=== PATIENT | male | born 1965 | race Two or more races ===

== ENCOUNTER 2024-01-15 10:00 | Emergency (ER) | payer OTHER, SELFPAY ==
--- NOTE | ~2024-01-15 | XR_ITS ---
EXAMINATION: XR CERVICAL SPINE CLINICAL INFORMATION: pain down right arm COMPARISON: None available. TECHNIQUE: 3 views of the cervical spine were obtained. FINDINGS: Mild reversal of cervical lordosis. The cervical vertebral bodies demonstrate normal height. Overall sagittal alignment is maintained. Mild intervertebral disc space narrowing and small endplate degenerative osteophytes at C4-C5 through C6-C7 The posterior elements appear intact. The atlantodental interval is maintained. Normal alignment of lateral masses of C1 over C2. The prevertebral soft tissue thickness is within normal limits. XR/XR cervical spine 3V IMPRESSION: No radiographic evidence of acute abnormality involving the cervical spine. Mild multilevel degenerative changes. Electronically signed by: Alan Reyna MD 01/15/2024 12:20 PM [facility]
--- NOTE | ~2024-01-15 | XR_ITS ---
EXAMINATION: XR SHOULDER, RIGHT CLINICAL INFORMATION: right shoulder pain COMPARISON: None available. TECHNIQUE: AP external rotation, Grashey, scapular Y, and axillary views of the right shoulder. FINDINGS: No acute fracture or dislocation. Glenohumeral and acromioclavicular alignment is anatomic with preserved joint spaces. No acute soft tissue abnormality. No abnormal soft tissue calcifications. XR/XR shoulder RT min 2V IMPRESSION: No acute fracture or dislocation. Electronically signed by: Alan Reyna MD 01/15/2024 12:25 PM [facility]
[2024-01-15 10:02] VITALS: BP 127/89; PULSE 77; RESP 18; TEMP 36.6; O2SAT 98; BMI 28.1
--- NOTE | 2024-01-15 11:12 | ED_ITS ---
HPI - General Adult General Chief complaint: General Medical Stated complaint: r arm pain Time Seen by Provider: 01/15/24 10:45 Source: patient Mode of arrival: ambulatory Limitations: no limitations History of Present Illness ED Provider: HORTENCIA ADKINS PA-C HPI narrative: 59 year old male with no significant pmhx presents to the ED today for evaluation of right neck/ upper back pain x1 month. Admits the pain has been constant since onset and just recently began radiating down his right upper extremity. 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 Denies heavy lifting. He has not trial any OTC pain medications at home. Denies any blunt injury or trauma. Denies numbness/tingling/weakness of the extremity. Denies hx of spinal or shoulder surgeries. Related Data Previous Rx's ?Medication ?Instructions ?Recorded cyclobenzaprine 5 mg tablet 5 mg PO Q8H #7 tabs 01/15/24 lidocaine 5 % topical patch 1 patch topical DAILY #15 ea 01/15/24 (Lidoderm) Allergies Allergy/AdvReac Type Severity Reaction Status Date / Time No Known Allergies Allergy Verified 01/15/24 10:03 Review of Systems Review of Systems: Yes all other systems are reviewed and are negative PMFSH Past Medical History Attestation statement: The following information was validated with the patient. Source: old records reviewed and nursing notes reviewed Social History Social History Advance Directives: No Advance Directives Information Provided: Yes Do you have a plan to hurt others: No Plan Physical Exam ED Vital Signs: Vital Signs - 24 hr 01/15/24 10:02 Temperature 98 F Pulse Rate 77 Respiratory Rate 18 Blood Pressure 127/89 Pulse Oximetry 98 Oxygen Delivery Method Room Air BMI result Body Mass Index 28.1 vital signs stable General: Well appearing, in no acute distress. Skin: Warm, dry, intact. No rashes or lesions. Head: Normocephalic, atraumatic. EENT: Hearing is intact b/l. Conjunctiva clear. PERRLA. EOM intact. Moist mucous membranes.? Neck: no midline spinous tendereness, ttp over right cervical paraspinal mm extending into right trapezius and right rotator cuff region. no palpable deformity or crepitus. Cardiac: Chest wall symmetric. RRR Lungs: Normal respiratory effort without accessory muscle use. CTA bilaterally Back: No midline spinous or paraspinal tenderness. No step off deformity. Ext: Full range of motion intact to right shoulder with mild pain on abduction against resistance. No palpable deformity or crepitus over the right shoulder joint. 2+ radial/ulnar pulse intact. Sensation intact to light touch. Neuro: AOx3. Normal speech. Ambulating with steady gait. Psych: Appropriate mood and affect. Responds appropriately to questions. Course Course Course Narrative: 1247 -- x-rays right shoulder without fracture. X-ray cervical spine with degenerative changes, no fracture. Concern for cervical radiculopathy vs muscular pain. On re-evaluation, patient reports improvement in pain after receiving Toradol, Flexeril and lidocaine patch. He does have a ride home as he did receive Flexeril today. He will not be driving. Will send pain control to pharmacy. Advised to follow up with PCP as needed. Patient has remained stable throughout ED visit today. Discussed worrisome signs and symptoms and when to return to the ED. All questions answered at this time. Patient is agreeable with disposition and stable for discharge. Medications Administered Discontinued Medications Generic Name Dose Route Start Last Admin Trade Name Freq PRN Reason Stop Dose Admin Cyclobenzaprine HCl 10 mg 01/15/24 11:16 01/15/24 11:41 Cyclobenzaprine Hcl 10 Mg Tablet PO 01/15/24 11:17 10 mg ONCE ONE Administration Ketorolac Tromethamine 30 mg 01/15/24 11:17 01/15/24 11:42 Ketorolac Tromethamine 30 Mg/Ml Vial IM 01/15/24 11:18 30 mg ONCE ONE Administration Lidocaine 1 patch 01/15/24 11:17 01/15/24 11:41 Lidocaine 4 % Patch Adh..Patch TRANSDERMA 01/15/24 11:18 1 patch ONCE ONE Administration Protocol Medical Decision Making Medical Decision Making MDM Narrative: 59 year old male with no significant pmhx presents to the ED today for evaluation of right neck/ upper back pain x1 month. Vital signs stable. Afebrile. He is nontoxic-appearing and in no acute distress. Lying comfortably on the exam bed. On exam, there is no midline spinous tendereness, ttp over right cervical paraspinal mm extending into right trapezius and right rotator cuff region. no palpable deformity or crepitus. Full range of motion intact to right shoulder with mild pain on abduction against resistance. No palpable deformity or crepitus over the right shoulder joint. 2+ radial/ulnar pulse intact. Sensation intact to light touch. Differential diagnosis includes contusion, MSK sprain/strain, cervical radiculopathy, arthritis, tendonitis, bursitis. Lower suspicion for fracture, dislocation. Unlikely rotator cuff injury, neurovascular compromise, threat to limb, compartment syndrome, DVT, rotator cuff tear. Plan for xrays, pain control, and re-evaluation. Differential Diagnosis Differential Diagnoses: The differential diagnosis associated with the presentation includes as above. Admission/Observation Not indicated. Independent Interpretation I performed an independent interpretation of an: Plain X-Ray Interpretation: XR cervical spine without fracture XR right shoulder without fracture Radiology Impression Discussion of test interpretation with radiology: I have reviewed the radiologist's reading. Radiologist Impression: EXAMINATION: XR CERVICAL SPINE CLINICAL INFORMATION: pain down right arm COMPARISON: None available. TECHNIQUE: 3 views of the cervical spine were obtained. FINDINGS: Mild reversal of cervical lordosis. The cervical vertebral bodies demonstrate normal height. Overall sagittal alignment is maintained. Mild intervertebral disc space narrowing and small endplate degenerative osteophytes at C4-C5 through C6-C7 The posterior elements appear intact. The atlantodental interval is maintained. Normal alignment of lateral masses of C1 over C2. The prevertebral soft tissue thickness is within normal limits. XR/XR cervical spine 3V IMPRESSION: No radiographic evidence of acute abnormality involving the cervical spine. Mild multilevel degenerative changes. Electronically signed by: Alan Reyna MD 01/15/2024 12:20 PM EST RP EXAMINATION: XR SHOULDER, RIGHT CLINICAL INFORMATION: right shoulder pain COMPARISON: None available. TECHNIQUE: AP external rotation, Grashey, scapular Y, and axillary views of the right shoulder. FINDINGS: No acute fracture or dislocation. Glenohumeral and acromioclavicular alignment is anatomic with preserved joint spaces. No acute soft tissue abnormality. No abnormal soft tissue calcifications. XR/XR shoulder RT min 2V IMPRESSION: No acute fracture or dislocation. Electronically signed by: Alan Reyna MD 01/15/2024 12:25 PM [employer] External Record Review External record reviewed: Inpatient record Prescription Management I considered prescription management with: Pain Medication (Tylenol, ibuprofen) and Other (Flexeril, lidocaine patch) Social Determinants Patient?s care significantly limited by Social Determinants of Health including: Other Social Determinant of Health Critical Care Time Critical Care Time Critical Care Time: No Discharge Plan Discharge Clinical Impression: Cervical radiculopathy Patient Disposition: Home, Self-Care Instructions: Cervical Radiculopathy (ED) Additional Instructions: You were evaluated in the emergency department for right neck/upper back/arm pain. The x-ray of your neck and shoulder do not reveal any fracture. There are degenerative changes within the neck itself. Your pain is likely musculoskeletal. I advised taking Tylenol and Motrin at home for pain control. I have also sent Flexeril, a muscle relaxer, to your pharmacy for you to take as needed for muscle pain. Do not take this while drinking, driving or operating heavy machinery as this may cause you to be drowsy. Lidocaine patches have been sent to your pharmacy to apply to the area as needed for pain control. Follow up with your primary care provider as needed Return with new or worsening symptoms. In the case of an emergency call 911. Prescriptions: New cyclobenzaprine 5 mg tablet 5 mg PO Q8H Qty: 7 0RF lidocaine [Lidoderm] 5 % adhesive patch,medicated 1 patch topical DAILY Qty: 15 0RF Rx Instructions: leave on most painful area for up to 12 hrs Referrals: Bernard Meng PA [Primary Care Provider] - Stand Alone Forms: Work/School Release Print Language: Polish
[2024-01-15] MEDS: Lidocaine 4 % Patch ADH..PATCH 1 PATCH TRANSDERMA (11:41)
[2024-01-15] MEDS: Cyclobenzaprine HCl 10 MG TABLET PO (11:41)
[2024-01-15] MEDS: Ketorolac Tromethamine 30 MG/ML VIAL IM (11:42)
[2024-01-15 13:02] VITALS: BP 127/89; PULSE 77; RESP 18; TEMP 36.6; O2SAT 98
== END 2024-01-15 13:03 | disposition home or self-care (01) ==
PROVIDERS: Emergency Provider Emergency Medicine Emergency Medical Services; PCP Physician Assistant Medical
DX: M54.12 Radiculopathy, cervical region (principal); M54.2 Cervicalgia
CPT/HCPCS: 72040; 73030; 96372; 99283; 99284; J1885

== ENCOUNTER 2024-04-11 14:43 | Emergency (ER) | payer OTHER, SELFPAY ==
--- NOTE | ~2024-04-11 | XR_ITS ---
EXAMINATION: XR CHEST CLINICAL INFORMATION: CP COMPARISON: None available. TECHNIQUE: 2 views of the chest were obtained. FINDINGS: No significant abnormality is noted involving the heart, lungs, mediastinum, bony thorax or soft tissues. XR/XR chest 2V IMPRESSION: Unremarkable chest examination. Electronically signed by: Rafael Galan MD 04/11/2024 04:31 PM [facility]
[2024-04-11 15:37] VITALS: BP 123/78; PULSE 92; RESP 18; TEMP 37.6; O2SAT 99; BMI 28.4
--- NOTE | 2024-04-11 15:37 | ED_ITS ---
HPI - Nausea/Vomiting/Diarrhea General Chief complaint: Abdominal Pain Stated complaint: Vomiting, dizziness Time Seen by Provider: 04/12/24 03:46 Source: patient Mode of arrival: ambulatory Limitations: no limitations History of Present Illness ED Provider: Dr. Tami Ramirez HPI Narrative: Patient comes to the emergency room complaining of nausea vomiting diarrhea and mild abdominal discomfort. Patient states that he ate at a [employer] almost 36 hours ago. Patient has had multiple episodes of vomiting and diarrhea. Patient states that people who worked with him and when for dinner at [employer], they all got sick. Patient denies fever chills, denies URI or UTI symptoms. Related Data Previous Rx's ?Medication ?Instructions ?Recorded cyclobenzaprine 5 mg tablet 5 mg PO Q8H #7 tabs 01/15/24 lidocaine 5 % topical patch 1 patch topical DAILY #15 ea 01/15/24 (Lidoderm) loperamide 2 mg tablet 2 mg PO Q4H PRN loose stool #14 04/12/24 tabs ondansetron 4 mg disintegrating 4 mg PO Q6H PRN nausea and 04/12/24 tablet vomiting #10 tabs Allergies Allergy/AdvReac Type Severity Reaction Status Date / Time No Known Allergies Allergy Verified 04/11/24 15:39 Review of Systems 2 Review of Systems: Constitutional : No Weight loss, No Fever, No Chills, No Night Sweats, No Fatigue, No Malaise ENT/Mouth : No Hearing loss, No Ear Pain, No Nasal Congestion, No Sinus Pain, No Hoarseness, No sore throat, No Rhinorrhea, No Swallowing Difficulty Eyes: No Eye Pain, No Swelling, No Redness, No Foreign Body, No Discharge, No Vision Changes Cardiovascular : No Chest Pain, No SOB, No Dyspnea on Exertion, No Orthopnea, No Edema, No Palpitations Respiratory : No Cough, No Sputum, No Wheezing, No Smoke Exposure, No Dyspnea Gastrointestinal : Complaining of nausea vomiting diarrhea, No Constipation, of abdominal cramping without significant abdominal Pain, No Hematochezia, No Melena Genitourinary : no irregular bleeding, No Dysuria, No Urinary Frequency, No Hematuria, No Urinary Incontinence, No Urgency, No Flank Pain, No Urinary Flow Changes, No Hesitancy Musculoskeletal : No joint pain, No Myalgias, No Joint Swelling Skin : No Skin Lesions, No rash Neuro : No Weakness, No Numbness, No Paresthesias, No Loss of Consciousness, No Dizziness, No Headache Psych : No Anxiety/Panic, No Depression, No SI/HI/AH/VH, No Social Issues, Heme/Lymph: No Bruising, No Bleeding,No Lymphadenopathy Endocrine : No Polyuria, No Polydipsia, No Temperature Intolerance PMFSH Social History Social History Advance Directives: No Advance Directives Information Provided: Yes Physical Exam 2 Vital Signs: Vital Signs: Last Vital Signs Temp 98.1 F 04/12/24 01:56 Pulse 83 04/12/24 01:56 Resp 16 04/12/24 01:56 BP 113/77 04/12/24 01:56 Pulse Ox 97 04/12/24 01:56 O2 Del Method Room Air 04/12/24 01:56 BMI result Body Mass Index 28.4 Const: Other: Appearance: Alert. Oriented X3. No acute distress. Well-appearing Eyes: Pupils equal, round and reactive to light. ENT: Pharynx normal. Neck: Normal inspection. Neck supple. No lymph nodes noted. No crepitus CVS: Normal heart rate and rhythm. Pulses normal. Normal S1 and S2 Respiratory: No respiratory distress. Breath sounds normal. No Wheezing. No rales Abdomen: Soft and nontender. No rigidity. No distention. Skin: Skin warm and dry. Normal skin color. Normal skin turgor. Extremities: No lower extremity edema. No Lacerations. No Rash Neuro: Oriented X 3. No motor deficit. No sensory deficit. Moving all extremities. No slurred speech. CN 2 through 12 grossly intact Psych: calm, cooperative, normal affect Course Course Course Narrative: This is an RME: Additional HPI, ROS, PE not included below will be deferred to primary provider. RME assessment and note performed by: Lizbeth Rowley PA-C This is a 59 year old male, w hx of IRAIS and HTN, who presents to the ER with a complaint of nausea, vomiting, diarrhea since last night. Had Sosa's yesterday and has had symptoms since. Threw up his blood pressure meds morning. Plan: Labs, UA, EKG, Chest x-ray, Zofran 4 mg ODT Medications Administered Discontinued Medications Generic Name Dose Route Start Last Admin Trade Name Igorq PRN Reason Stop Dose Admin Ondansetron HCl 4 mg 04/11/24 15:39 04/11/24 15:41 Ondansetron Odt 4 Mg Tab.Leigh Ann USINGU 04/11/24 15:40 4 mg ONCE ONE Administration Medical Decision Making Medical Decision Making [facility] Narrative: Physical exam is reassuring, no abdominal tenderness. Patient's labs, hematology and chemistry within normal limits, normal troponin, serology negative for COVID RSV and influenza, urinalysis negative for UTI Given patient's history, likely has gastroenteritis Patient was provided with Zofran and loperamide. Lab Data [facility] Lab Attestation statement: I reviewed the patient's lab results. 04/11/24 15:51 04/11/24 15:51 Labs: Lab Results 04/11/24 04/11/24 04/11/24 Range/Units 15:51 21:54 22:10 WBC 9.8 (4.8-10.8) X10*3/uL RBC 4.67 (4.60-5.80) X10*6/uL Hgb 14.3 (14.0-18.0) g/dl Hct 40.3 L (42.0-52.0) % MCV 86.3 (80.0-98.0) fL MCH 30.6 (27.0-33.0) pg MCHC 35.5 (31.0-36.0) g/dl RDW 13.4 (11.0-16.0) % Plt Count 261 (160-400) X10*3/uL MPV 9.8 (9.4-12.4) fL Immature Gran % (Auto) 0.3 (0.0-0.4) % Neut % (Auto) 89.0 H (45-73) % Lymph % (Auto) 6.0 L (20-40) % [place] % (Auto) 4.1 (2-11) % Eos % (Auto) 0.4 (0-4) % Baso % (Auto) 0.2 (0-2) % Lymph # (Auto) 0.6 L (1.2-4.9) X10*3/uL [place] # (Auto) 0.4 (0.1-1.2) X10*3/uL Eos # (Auto) 0.0 (0.0-0.4) X10*3/uL Baso # (Auto) 0.0 (0.0-0.2) X10*3/uL Abs Immat Gran (auto) 0.03 (0.00-0.03) X10*3/uL Absolute Neuts (auto) 8.7 H (2.0-8.3) x10*3/uL Absolute Nucleated RBC 0.000 (0.0-0.012) X10*3/uL Nucleated RBC % (auto) 0.0 (0.0-0.2) /100WBC Sodium 140 (135-145) mmol/L Potassium 3.9 (3.3-5.1) mmol/L Chloride 106 (96-108) mmol/L Carbon Dioxide 25 (22-29) mmol/L Anion Gap 13 (12-20) BUN 18 H (9-16) mg/dL Creatinine 1.12 (0.5-1.4) mg/dL Estim Creat Clear Calc 77.1 Estimated GFR > 60 Random Glucose 102 (60-115) mg/dL Calcium 9.2 (8.4-10.2) mg/dL Magnesium 1.8 (1.6-2.6) mg/dL Total Bilirubin 1.0 (0.0-1.0) mg/dL Direct Bilirubin 0.3 (0.0-0.5) mg/dL AST 32 (5-37) U/L ALT 28 (0-40) U/L Alkaline Phosphatase 122 H (39-117) U/L Troponin I High Sens < 2.7 < 2.7 (<3.5-35.0) ng/L Total Protein 8.0 (6.5-8.0) g/dL Albumin 4.2 (3.5-5.0) g/dL Lipase 13 (8-78) U/L Urine Color Dark Yellow Urine Appearance Clear Urine pH 5.5 (5.0-9.0) Ur Specific [place] >= 1.030 H (1.005-1.025) Urine Protein 30 (1+) H (Neg-Trace) mg/dL Urine Glucose (UA) Negative (Negative) mg/dL Urine Ketones Trace (Negative) mg/dL Urine Blood Negative (Negative) Urine Nitrite Negative (Negative) Ur Leukocyte Esterase Negative (Negative) Urine RBC 0-2 (0-2) /HPF Urine WBC 0-5 (0-5) /HPF Ur Squamous Epith Cells 0-2 (0-2) /HPF Urine Bacteria None Seen (None Seen) Hyaline Casts 0-2 (0-2) /LPF Influenza Type A (PCR) NEGATIVE (Negative) Influenza Type B (PCR) NEGATIVE (Negative) RSV RNA Qual (PCR) NEGATIVE (Negative) SARS-CoV-2 RNA (RT-PCR) NEGATIVE (Negative) Discharge Plan Discharge Clinical Impression: Gastroenteritis Patient Disposition: Home, Self-Care Instructions: Acute Nausea and Vomiting (ED), Acute Diarrhea (ED) Additional Instructions: Please follow-up with your primary care physician tomorrow. If you have any worsening or new symptoms, please return to the emergency room or call 911 Prescriptions: New ondansetron 4 mg tablet,disintegrating 4 mg PO Q6H PRN (Reason: nausea and vomiting) Qty: 10 0RF loperamide 2 mg tablet 2 mg PO Q4H PRN (Reason: loose stool) Qty: 14 0RF Rx Instructions: administer after each loose stool until symptoms controlled; do not exceed 8 mg per 24 hrs No Action cyclobenzaprine 5 mg tablet 5 mg PO Q8H Qty: 7 0RF lidocaine [Lidoderm] 5 % adhesive patch,medicated 1 patch topical DAILY Qty: 15 0RF Rx Instructions: leave on most painful area for up to 12 hrs Stand Alone Forms: Work/School Release Print Language: [place]an
--- NOTE | 2024-04-11 15:38 | ECG_ITS ---
Test Reason : abdominal pain Blood Pressure : */* mmHG Vent. Rate : 82 BPM Atrial Rate : 82 BPM P-R Int : 148 ms QRS Dur : 78 ms QT Int : 364 ms P-R-T Axes : 7 7 15 degrees QTcB Int : 425 ms Normal sinus rhythm Normal ECG No previous ECGs available Referred By: Lizbeth Rowley Electronically Signed By: DIVYA JETER MD
[2024-04-11] MEDS: Ondansetron ODT 4 MG TAB.RAPDIS TRANSLINGU (15:41)
[2024-04-11 15:55] LABS: MANUAL DIFF FLAG NO
[2024-04-11 16:02] LABS: Basophils Percent Auto 0.2 % (0-2); Eosinophils Percent Auto 0.4 % (0-4); Hematocrit 40.3 % (42.0-52.0); Hemoglobin 14.3 g/dl (14.0-18.0); Imm Gran Abs Auto 0.03 X10*3/uL (0.00-0.03); Imm Gran Pct Auto 0.3 % (0.0-0.4); Lymphocytes Absolute Auto 0.6 X10*3/uL (1.2-4.9); Mean Corpuscular HGB Conc 35.5 g/dl (31.0-36.0); Mean Corpuscular Hemoglobin 30.6 pg (27.0-33.0); Mean Corpuscular Volume 86.3 fL (80.0-98.0); Mean Platelet Volume 9.8 fL (9.4-12.4); Monocytes Absolute Auto 0.4 X10*3/uL (0.1-1.2); Monocytes Percent Auto 4.1 % (2-11); Neutrophils Absolute Auto 8.7 x10*3/uL (2.0-8.3); Platelet Count 261 X10*3/uL (160-400); Red Blood Count 4.67 X10*6/uL (4.60-5.80); Red Cell Distribution Width 13.4 % (11.0-16.0); White Blood Count 9.8 X10*3/uL (4.8-10.8)
[2024-04-11 16:22] LABS: Troponin-I High Sensitivity < 2.7 ng/L (<3.5-35.0)
[2024-04-11 16:35] LABS: Influenza A PCR NEGATIVE (Negative); Influenza B PCR NEGATIVE (Negative); Resp Syncy Virus RNA Qual PCR NEGATIVE (Negative); SARS COV2 PCR INHOUSE NEGATIVE (Negative)
[2024-04-11 16:45] LABS: Alanine Aminotransferase 28 U/L (0-40); Albumin Level 4.2 g/dL (3.5-5.0); Alkaline Phosphatase 122 U/L (39-117); Anion Gap 13 (12-20); Aspartate Amino Transferase 32 U/L (5-37); Bilirubin Direct 0.3 mg/dL (0.0-0.5); Blood Urea Nitrogen 18 mg/dL (9-16); Calcium 9.2 mg/dL (8.4-10.2); Carbon Dioxide 25 mmol/L (22-29); Chloride 106 mmol/L (96-108); Creatinine Clr Calc Pharmacy 77.1; Estimated Glomerular Filt Rate > 60; Glucose Random 102 mg/dL (60-115); Lipase 13 U/L (8-78); Magnesium 1.8 mg/dL (1.6-2.6); Potassium 3.9 mmol/L (3.3-5.1); Sodium 140 mmol/L (135-145)
[2024-04-11 21:55] VITALS: BP 114/77; PULSE 81; RESP 18; TEMP 37.4; O2SAT 97
[2024-04-11 22:06] LABS: Appearance Urine Clear; Color Urine Dark Yellow; Glucose Urine UA Negative (Negative); Leukocyte Esterase Urine Negative (Negative); Nitrite Urine Negative (Negative); PH 5.5 (5.0-9.0); Specific Gravity - Urine >= 1.030 (1.005-1.025); UMIC TRIGGER UACC YES; Urine Blood Negative (Negative); Urine Ketones Trace mg/dL (Negative); Urine Protein 30 (1+) mg/dL (Neg-Trace)
[2024-04-11 22:08] LABS: Bacteria Urine None Seen (None Seen); Hyaline Casts Urine 0-2 /LPF (0-2); RBC Urine 0-2 /HPF (0-2); Squamous Epithelial Cell Urine 0-2 /HPF (0-2); WBC Urine 0-5 /HPF (0-5)
[2024-04-11 22:42] LABS: Troponin-I High Sensitivity < 2.7 ng/L (<3.5-35.0)
[2024-04-12 00:01] VITALS: BP 104/67; PULSE 88; RESP 20; TEMP 37.2; O2SAT 98
[2024-04-12 01:56] VITALS: BP 113/77; PULSE 83; RESP 16; TEMP 36.7; O2SAT 97
--- OUTSIDE RECORDS SUMMARY | 2024-04-12 02:42 | XMS_ITS | Clinical Summary ---
Author Organization [facility] Address [address] [place] [address] Care Team Providers Care Claim Technician Name Role Phone ChristophersheilashoshanaBernard Primary Care Provider [phone] Allergies No known active allergies Medications lidocaine (LIDODERM) 5% patch Apply 1 patch topically to the affected area once a day. Remove and discard patch within 12 hours or as directed. 14 patch Active Social History Tobacco Use Types Packs/Day Years Used Date Smoking Tobacco: Never Assessed Sex and Gender Information Value Date Recorded Sex Assigned at Not on file Legal Sex Male 7:44 PM EDT Gender Identity Not on file Sexual Orientation Not on file Last Filed Vital Signs Vital Sign Reading Time Taken Comments Blood Pressure 158/81 08/24/2022 7:47 PM EDT Pulse 81 08/24/2022 7:47 PM EDT Temperature 36.6 ??C (97.8 ??F) 08/24/2022 7:47 PM ED T Respiratory Rate 18 08/24/2022 7:47 PM EDT Oxygen Saturation 98% 08/24/2022 7:47 PM EDT Inhaled Oxygen Concentration - - Weight - - Height - - Body Mass Index - - Plan of Treatment Health Maintenance Due Date Last Done Comments Cologuard 1967 Colon Cancer Screening 1967 Colonoscopy 1967 FOBT / Fit Test 1967 HIV Screening 1967 Hepatitis C Screening 1967 Sigmoidoscopy 1967 Hepatitis B Vaccines (1 of 3 - 19+ 3-dose series) 1986 DTaP,Tdap,and Td Vaccines (1 - Tdap) 1989 Pneumococcal Vaccine: 50+ Ye ars (1 of 1 - PCV) 2017 Zoster Vaccines (1 of 2) 2017 COVID-19 Vaccine ( - 2023- season) 2023 2022, 02/27/2021, 05/20/2020 Influenza Vaccine (#1) 2023 12/22/2021 Alcohol/Substance Use Screening 02/09/2024 Depression Screening and Follow-Up 02/09/2024 Social Drivers of Health Zeny ual Screening 02/09/2024 RSV Vaccine (60+ years old a nd patients) (1 - 1-dose 75+ series) [address] [place] [address] [place] [address] [facility] [employer] Care Teams Claim Technician Relationship Specialty Start Date End Date Bernard Meng [address] [place] [id number] PCP - General 08/24/22
--- OUTSIDE RECORDS SUMMARY | 2024-04-12 02:42 | XMS_ITS | Referral Summary ---
Author Organization [facility] Address [address] [place] [address] Care Team Providers Care Photography Editor Name Role Phone Bernard Meng Primary Care Provider [phone] Allergies No known active allergies Medications lidocaine [...] Mass Index - - Plan of Treatment Not on file Insurance [employer] [facility] [place] [address] [facility] [employer] Care Teams Photography Editor Relationship Specialty Start Date End Date Bernard Meng [address] [place] [id number] PCP - General 08/24/22
--- OUTSIDE RECORDS SUMMARY | 2024-04-12 02:42 | XMS_ITS | Clinical Summary ---
Author Organization [facility] Address [address] [place] [address] Care Team Providers Care [employer] Registrar Name Role Phone Unavailable Primary Care Provider Unavailabl e Social History Tobacco Use Types Packs/Day Years Used Date Smoking Tobacco: Never Assessed Sex and Gender Information Value Date Recorded Sex Assigned at Not on file Legal Sex Male 10:20 AM EST Gender Identity Not on file Sexual Orientation Not on file Plan of Treatment Health Maintenance Due Date Last Done Comments DTaP,Tdap,and Td Vaccines (1 - Tdap) 1986 Hepatitis B Vaccines (1 of 3 - 19+ 3-dose series) 1986 Pneumococcal Vaccine: 50+ Ye ars (1 of 1 - PCV) 2017 Zoster Vaccines (1 of 2) 2017 Cholesterol Screening (Lipid Panel) 01/06/2022 Colorectal Cancer Screening: Colonoscopy 01/06/2022 Depression Screening 01/06/2022 HIV Screening 01/06/2022 Hepatitis C Screening 01/06/2022 Social Influencers of Health Screening 01/06/2022 COVID-19 Vaccine ( - 2023-2 5 season) 2023 Influenza Vaccine (#1) 2023 HIB Vaccines Aged Out No longer eligi ble based on patient's age to complete this topic HPV Vaccines Aged Out No longer eligi ble based on patient's age to complete this topic Hepatitis A Vaccines Aged Out No long er eligible based on patient's age to complete this topic IPV Vaccines Aged Out No longer eligi ble based on patient's age to complete this topic MMR Vaccines Aged Out No longer eligi ble based on patient's age to complete this topic Meningococcal ACWY Vaccine Aged Out N o longer eligible based on patient's age to complete this topic Meningococcal B Vacine Aged Out No lo nger eligible based on patient's age to complete this topic Pneumococcal Vaccine: Pediat rics (0 to 5 Years) and At-Risk Patients (6 to 64 Years) Aged Out No longer eligible b ased on patient's age to complete this topic RSV Immunization Patients Un chente 20 months Aged Out No longer eligible b ased on patient's age to complete this topic Varicella Vaccines Aged Out No longer eligible based on patient's age to complete this topic
[2024-04-12] MEDS: Loperamide HCl 2 MG CAPSULE 4 MG PO (05:12)
[2024-04-12] MEDS: Ondansetron ODT 4 MG TAB.RAPDIS TRANSLINGU (05:12)
[2024-04-12 05:14] VITALS: BP 113/77; PULSE 83; RESP 16; TEMP 36.7; O2SAT 97
== END 2024-04-12 05:15 | disposition home or self-care (01) ==
PROVIDERS: Physician Assistant Medical; Emergency Provider Emergency Medicine; PCP Physician Assistant Medical
DX: K52.9 Noninfective gastroenteritis and colitis, unspecified (principal); I10 Essential (primary) hypertension
CPT/HCPCS: 0241U; 36415; 71046; 80048; 80076; 81001; 83690; 83735; 84484; 85025; 93005; 99283; 99284

== ENCOUNTER → 2024-04-11 15:38 | Outpatient (BNV) | payer OTHER, SELFPAY | PROVIDERS: Emergency Provider Emergency Medicine; PCP Physician Assistant Medical; Visit Provider Internal Medicine Cardiovascular Disease | DX: R42 Dizziness and giddiness (principal) | CPT/HCPCS: 93010 ==

== ENCOUNTER → 2024-04-11 16:03 | Outpatient (BNV) | payer OTHER, SELFPAY | PROVIDERS: PCP Physician Assistant Medical; Visit Provider Radiology Diagnostic Radiology | DX: R07.9 Chest pain, unspecified (principal) | CPT/HCPCS: 71046 ==